=== PATIENT | female | born 1980 | race Native Hawaiian/Other Pacific Islander ===

== ENCOUNTER 2016-09-07 10:40 | Outpatient (CLI) | payer MEDICAID ==
[2016-09-07 14:02] LABS: BASOPHILS # (AUTO) 0.1 10^3/uL (0.0-0.1); BASOPHILS % (AUTO) 0.7 %; EOSINOPHILS # (AUTO) 0.3 10^3/uL (0.0-0.7); EOSINOPHILS % (AUTO) 3.4 %; HCT - HEMATOCRIT 41.2 % (37.0-47.0); HGB - HEMOGLOBIN 13.6 g/dL (12.0-16.0); LYMPHOCYTES # (AUTO) 2.1 10^3/uL (1.5-3.5); LYMPHOCYTES % (AUTO) 25.8 %; MEAN CORPUSCULAR HEMOGLOBIN 29.2 pg (27.0-31.0); MEAN CORPUSCULAR HGB CONC 33.1 g/dL (32.0-36.0); MEAN CORPUSCULAR VOLUME 88.4 fL (81.0-99.0); MEAN PLATELET VOLUME 8.6 fL (7.9-10.8); MONOCYTES # (AUTO) 0.5 10^3/uL (0.0-1.0); MONOCYTES % (AUTO) 5.7 %; NEUTROPHILS # (AUTO) 5.2 10^3/uL (1.5-6.6); NEUTROPHILS % (AUTO) 64.4 %; RED BLOOD COUNT 4.66 10^6/uL (4.20-5.40); RED CELL DISTRIBUTION WIDTH 14.4 % (12.0-15.0)
[2016-09-07 14:28] LABS: CHOL/HDL RATIO 4.4 (<4.4); CHOLESTEROL 251 mg/dL; HDL CHOLESTEROL 57 mg/dL; TRIGLYCERIDES 120 mg/dL; VLDL CHOLESTEROL 24 mg/dL
== END 2016-09-07 10:41 | disposition home or self-care (01) ==
LOC: LAB.N 10:40
PROVIDERS: ATTEND Physician Assistant
DX: Z72.0 Tobacco use (principal); I10 Essential (primary) hypertension
CPT/HCPCS: 36415; 80061; 84443; 85025

== ENCOUNTER 2017-10-18 11:15 | Outpatient (CLI) | payer MEDICAID ==
[2017-10-18 18:54] LABS: BILIRUBIN,URINE NEGATIVE (NEGATIVE); GLUCOSE, URINE (UA) NEGATIVE (NEGATIVE); KETONES,URINE (UA) NEGATIVE (NEGATIVE); LEUKOCYTE ESTERASE, URINE NEGATIVE (NEGATIVE); NITRITE,URINE NEGATIVE (NEGATIVE); OCCULT BLOOD,URINE NEGATIVE (NEGATIVE); PROTEIN,URINE NEGATIVE (NEGATIVE); UROBILINOGEN,URINE 0.2 (NORMAL) E.U./dL (NORMAL)
[2017-10-18 19:17] LABS: CLARITY,URINE CLEAR (CLEAR); RBC,URINE 0-5 /HPF (0-5); SQUAMOUS EPITHELIAL CELL,UR MANY Squamous (<= Few)
[2017-10-18 19:18] LABS: BACTERIA,URINE Few /HPF (None Seen)
== END 2017-10-18 11:16 | disposition home or self-care (01) ==
LOC: LAB.N 11:15
PROVIDERS: ATTEND Physician Assistant Medical
DX: N30.00 Acute cystitis without hematuria (principal)
CPT/HCPCS: 81001; 87086

== ENCOUNTER 2018-11-20 08:00 | Outpatient (CLI) | payer MEDICAID ==
[2018-11-20 18:56] LABS: BASOPHILS % (AUTO) 0.4 %; EOSINOPHILS # (AUTO) 0.3 10^3/uL (0.0-0.7); EOSINOPHILS % (AUTO) 3.3 %; HGB - HEMOGLOBIN 14.3 g/dL (12.0-16.0); LYMPHOCYTES # (AUTO) 2.3 10^3/uL (1.5-3.5); LYMPHOCYTES % (AUTO) 28.7 %; MEAN CORPUSCULAR HEMOGLOBIN 30.7 pg (27.0-31.0); MEAN CORPUSCULAR HGB CONC 33.6 g/dL (32.0-36.0); MEAN CORPUSCULAR VOLUME 91.4 fL (81.0-99.0); MEAN PLATELET VOLUME 10.3 fL (7.9-10.8); MONOCYTES # (AUTO) 0.4 10^3/uL (0.0-1.0); MONOCYTES % (AUTO) 5.2 %; NEUTROPHILS # (AUTO) 4.9 10^3/uL (1.5-6.6); PLT - PLATELET COUNT 370 10^3/uL (130-450); RED BLOOD COUNT 4.66 10^6/uL (4.20-5.40); RED CELL DISTRIBUTION WIDTH 13.2 % (12.0-15.0); WHITE BLOOD COUNT 7.9 x10^3/uL (4.8-10.8)
[2018-11-20 19:06] LABS: CALCIUM 10.1 mg/dL (8.5-10.3); CREATININE 0.7 mg/dL (0.4-1.0)
== END 2018-11-20 23:59 | disposition home or self-care (01) ==
LOC: LAB.N 08:00
PROVIDERS: ATTEND Physician Assistant Medical
DX: I10 Essential (primary) hypertension (principal)
CPT/HCPCS: 36415; 80048; 84443; 85025

== ENCOUNTER 2020-07-01 09:08 | Outpatient (CLI) | payer MEDICAID ==
[2020-07-01 12:12] LABS: ALBUMIN 4.2 g/dL (3.2-5.5); ALBUMIN/GLOBULIN RATIO 1.5 (1.0-2.2); ALKALINE PHOSPHATASE 59 IU/L (42-121); ALT ALANINE AMINOTRANSFERASE 28 IU/L (10-60); AST ASPARTATE AMINOTRANSFERASE 23 IU/L (10-42); BILIRUBIN,TOTAL 0.6 mg/dL (0.2-1.0); BUN - BLOOD UREA NITROGEN 17 mg/dL (6-20); CALCIUM 9.7 mg/dL (8.5-10.3); CARBON DIOXIDE - CO2 22 mmol/L (21-32); CHLORIDE 104 mmol/L (101-111); CHOL/HDL RATIO 4.6 (<4.4); CHOLESTEROL 260 mg/dL; CREATININE 0.8 mg/dL (0.4-1.0); GFR - MDRD 79 (>89); GLUCOSE 140 mg/dL (70-100); HDL CHOLESTEROL 56 mg/dL; LDL CHOLESTEROL,CALCULATED 170 mg/dL; SODIUM 136 mmol/L (135-145); TRIGLYCERIDES 172 mg/dL; VLDL CHOLESTEROL 34 mg/dL
[2020-07-01 12:19] LABS: THYROID STIMULATING HORMONE 1.27 uIU/mL (0.34-5.60)
[2020-07-01 12:22] LABS: ESTIMATED AVERAGE GLUCOSE 128 mg/dL (70-100); HEMOGLOBIN A1c% 6.1 % (4.27-6.07)
[2020-07-01 13:11] LABS: BASOPHILS % (AUTO) 0.4 %; EOSINOPHILS # (AUTO) 0.2 10^3/uL (0.0-0.7); EOSINOPHILS % (AUTO) 3.6 %; HCT - HEMATOCRIT 41.4 % (37.0-47.0); HGB - HEMOGLOBIN 13.6 g/dL (12.0-16.0); LYMPHOCYTES # (AUTO) 1.9 10^3/uL (1.5-3.5); LYMPHOCYTES % (AUTO) 28.2 %; MEAN CORPUSCULAR HEMOGLOBIN 29.8 pg (27.0-31.0); MEAN CORPUSCULAR HGB CONC 32.9 g/dL (32.0-36.0); MEAN CORPUSCULAR VOLUME 90.8 fL (81.0-99.0); MONOCYTES # (AUTO) 0.4 10^3/uL (0.0-1.0); MONOCYTES % (AUTO) 6.4 %; NEUTROPHILS # (AUTO) 4.1 10^3/uL (1.5-6.6); NEUTROPHILS % (AUTO) 61.3 %; PLT - PLATELET COUNT 283 10^3/uL (130-450); RED BLOOD COUNT 4.56 10^6/uL (4.20-5.40); RED CELL DISTRIBUTION WIDTH 12.9 % (12.0-15.0); WHITE BLOOD COUNT 6.7 x10^3/uL (4.8-10.8)
== END 2020-07-01 09:09 | disposition home or self-care (01) ==
LOC: LAB.N 09:08
PROVIDERS: ATTEND Family Medicine
DX: Z00.00 Encounter for general adult medical examination without abnormal findings (principal); E78.5 Hyperlipidemia, unspecified
CPT/HCPCS: 36415; 80053; 80061; 83036; 83721; 84443; 85025

== ENCOUNTER 2021-04-16 11:07 | Outpatient (CLI) | payer MEDICAID ==
--- NOTE | 2021-04-16 12:42 | Ultrasound Report ---
PROCEDURE: Pelvic w/Transvaginal, ultrasound INDICATIONS: MENORRHAGIA, THICKENED ENDOMETRIUM TECHNIQUE: Real-time scanning was performed of the pelvic organs, with image documentation. Additional endovagi nal scanning was necessary due to incomplete visualization of the adnexal and endometrial structures by transabdominal scanning. COMPARISON: 01/29/2016 FINDINGS: No pathologic free abdominal or pelvic fluid. Uterus: Uterus is normal in size at 1.2 x 3.9 x 4.7 cm. The endometrium measures 8 mm in combined t hickness. Myometrium is heterogenous, and there is a submucosal 1 cm centimeters fibroid in the mid anterior uterus. Focal scarring noted from prior . A focal endometrial thickening measures 7 .5 mm may reflect polyp. Ovaries: Right left ovaries measure 3.5 x 1.9 x 1.3 cm and 2.7 x 1.6 x 1.4 cm respectively. There is a right ovarian hemorrhagic cyst measuring 1.5 x 1.3 cm. IMPRESSION: Small 1 cm uterine fibroid Possible endometrial polyp could be confirmed with sonohysterogram Reviewed by: Kris Mclean MD on 04/16/2021 11:41 AM [place] Approved by: Kris Mclean MD on 04/16/2021 11:41 AM [facility] Station ID: [id number]
== END 2021-04-16 11:08 | disposition home or self-care (01) ==
LOC: DI 11:07
PROVIDERS: ATTEND Obstetrics & Gynecology
DX: N92.0 Excessive and frequent menstruation with regular cycle (principal); N85.00 Endometrial hyperplasia, unspecified; D25.0 Submucous leiomyoma of uterus; R93.89 Abnormal findings on diagnostic imaging of other specified body structures

== ENCOUNTER 2021-08-01 09:07 | Outpatient (CLI) | payer MEDICAID ==
[2021-08-01 09:31] LABS: BASOPHILS # (AUTO) 0.1 10^3/uL (0.0-0.1); BASOPHILS % (AUTO) 0.7 %; EOSINOPHILS # (AUTO) 0.3 10^3/uL (0.0-0.7); EOSINOPHILS % (AUTO) 3.8 %; HCT - HEMATOCRIT 41.1 % (37.0-47.0); HGB - HEMOGLOBIN 13.6 g/dL (12.0-16.0); LYMPHOCYTES # (AUTO) 1.8 10^3/uL (1.5-3.5); LYMPHOCYTES % (AUTO) 24.8 %; MEAN CORPUSCULAR HEMOGLOBIN 29.2 pg (27.0-31.0); MEAN CORPUSCULAR HGB CONC 33.1 g/dL (32.0-36.0); MEAN CORPUSCULAR VOLUME 88.4 fL (81.0-99.0); MEAN PLATELET VOLUME 9.3 fL (7.9-10.8); MONOCYTES # (AUTO) 0.5 10^3/uL (0.0-1.0); MONOCYTES % (AUTO) 6.8 %; NEUTROPHILS # (AUTO) 4.7 10^3/uL (1.5-6.6); NEUTROPHILS % (AUTO) 63.8 %; PLT - PLATELET COUNT 304 10^3/uL (130-450); RED BLOOD COUNT 4.65 10^6/uL (4.20-5.40); RED CELL DISTRIBUTION WIDTH 13.1 % (12.0-15.0); WHITE BLOOD COUNT 7.3 x10^3/uL (4.8-10.8)
[2021-08-01 09:52] LABS: ALBUMIN 4.2 g/dL (3.2-5.5); ALBUMIN/GLOBULIN RATIO 1.3 (1.0-2.2); ALKALINE PHOSPHATASE 56 IU/L (42-121); ALT ALANINE AMINOTRANSFERASE 24 IU/L (10-60); AST ASPARTATE AMINOTRANSFERASE 19 IU/L (10-42); BILIRUBIN,TOTAL 0.8 mg/dL (0.2-1.0); BUN - BLOOD UREA NITROGEN 14 mg/dL (6-20); CALCIUM 9.9 mg/dL (8.5-10.3); CARBON DIOXIDE - CO2 25 mmol/L (21-32); CHLORIDE 101 mmol/L (101-111); CHOL/HDL RATIO 4.4 (<4.4); CHOLESTEROL 282 mg/dL; CREATININE 0.9 mg/dL (0.4-1.0); GFR - MDRD 69 (>89); GLUCOSE 142 mg/dL (70-100); HDL CHOLESTEROL 64 mg/dL; LDL CHOLESTEROL,CALCULATED 190 mg/dL; POTASSIUM 4.1 mmol/L (3.5-5.0); SODIUM 138 mmol/L (135-145); TOTAL PROTEIN 7.4 g/dL (6.7-8.2); TRIGLYCERIDES 140 mg/dL; VLDL CHOLESTEROL 28 mg/dL
[2021-08-01 10:06] LABS: CREATININE,URINE 110.5 mg/dL; MICROALBUM/CREATININE RATIO,UR 150.2 ug/mg (<30.0); MICROALBUMIN,URINE 16.6 mg/dL (0-300.0)
[2021-08-01 12:04] LABS: ESTIMATED AVERAGE GLUCOSE 128 mg/dL (70-100); HEMOGLOBIN A1c% 6.1 % (4.27-6.07)
== END 2021-08-01 09:08 | disposition home or self-care (01) ==
LOC: LAB 09:07
PROVIDERS: ATTEND Obstetrics & Gynecology
DX: Z01.812 Encounter for preprocedural laboratory examination (principal); N92.0 Excessive and frequent menstruation with regular cycle; D25.9 Leiomyoma of uterus, unspecified; N84.0 Polyp of corpus uteri; E11.9 Type 2 diabetes mellitus without complications
CPT/HCPCS: 36415; 80053; 80061; 82043; 82570; 83036; 83721; 85025; 86850; 86900; 86901; 86920

== ENCOUNTER 2021-08-02 09:33 | Day surgery (SDC) | payer MEDICAID ==
[~2021-08-02 09:33] MED LIST: BUPIVACAINE 0.25% PF 10 ML VIAL ONE; LIDOCAINE 2%-EPI 1:100000 20 ML MDV ONE; METHYLENE BLUE 0.5% 50 MG/10 ML AMPULE ONE; VASOPRESSIN 20 UNIT/ML VIAL ONE
[2021-08-02] MEDS ORDERED: CEFAZOLIN SODIUM IN 0.9 % NACL 0 GM/0 ML BAG IV ONE (09:40)
[2021-08-02] MEDS ORDERED: ACETAMINOPHEN 500 MG TABLET PO ONE (09:40)
[2021-08-02] MEDS ORDERED: GABAPENTIN 400 MG CAPSULE ONE (09:41)
[2021-08-02] MEDS ORDERED: CELECOXIB 100 MG CAPSULE PO ONE (09:41)
[2021-08-02] MEDS ORDERED: PHENAZOPYRIDINE 100 MG TABLET PO ONE (09:42)
[2021-08-02] MEDS ORDERED: LACTATED RINGERS 1,000 ML IV ONE ×2 (10:08→16:16)
--- NOTE | 2021-08-02 10:18 | ANESTHESIA ---
Pre-Anesthesia VS, & Labs - Diagnosis menorrhagia, uterine fibroid, uterine polyp - Procedure LAV Vital Signs: Temp Pulse Resp BP Pulse Ox 36.6 C 78 19 150/89 H 98 08/02/21 09:55 08/02/21 09:55 08/02/21 09:55 08/02/21 09:55 08/02/21 09:55 Height: 5 ft 8 in Weight (kg): 92.4 kg Body Mass Index: 30.9 BMI Classification: Obese - NPO >8 hours - Is Patient ?: No - Lab Results Current Lab Results: Laboratory Tests 08/02/21 10:02: POC Whole Bld Glucose 126 H Lab results reviewed: Yes Home Medications and Allergies Home Medications: Ambulatory Orders Losartan Potassium [Cozaar] 100 mg PO DAILY 07/28/21 buPROPion [Wellbutrin Xl] 150 mg PO DAILY 07/28/21 hydroCHLOROthiazide [Hydrodiuril] 25 mg PO DAILY 07/28/21 metFORMIN [Glucophage] 500 mg PO BIDWM 07/28/21 Losartan Potassium [Cozaar] 100 mg PO DAILY 07/28/21 buPROPion [Wellbutrin Xl] 150 mg PO DAILY 07/28/21 hydroCHLOROthiazide [Hydrodiuril] 25 mg PO DAILY 07/28/21 metFORMIN [Glucophage] 500 mg PO BIDWM 07/28/21 Allergies/Adverse Reactions: Allergies Allergy/AdvReac Type Severity Reaction Status Date / Time naproxen Allergy Respiratory Verified 11/04/12 16:56 Penicillins Allergy Respiratory Verified 10/29/12 16:20 Anes History & Medical History - Anesthetic History Anesthesia Complications: reports: No previous complications Family history of Anesthesia Complications: Denies Family history of Malignant Hyperthermia: Denies - Medical History Cardiovascular: reports: Hypertension, Murmur Pulmonary: reports: None Gastrointestinal: reports: None Urinary: reports: None Musculoskeletal: reports: None Endocrine/Autoimmune: reports: Type 2 diabetes Skin: reports: None Smoking Status: Former smoker - Surgical History Gynecologic: reports: section, Tubal ligation Orthopedic: reports: Other Exam General: Alert, Oriented x3, Cooperative, No acute distress Dental: WNL Mouth Openin Fingerbreadth Neck Mobility: Normal Mallampati classification: II Plan Anesthesia Type: General Consent for Procedure(s) Verified and Reviewed: Yes Code Status: Attempt Resuscitation ASA classification: 2-Mild systemic disease Is this case an emergency?: No
[2021-08-02] MEDS ORDERED: ONDANSETRON 4 MG/2 ML VIAL ONE (10:33)
[2021-08-02] MEDS ORDERED: ROCURONIUM 50 MG/5 ML VIAL ONE ×3 (10:33→13:37)
[2021-08-02] MEDS ORDERED: DEXAMETHASONE 4 MG/ML VIAL ONE (10:33)
[2021-08-02] MEDS ORDERED: KETOROLAC 30 MG/ML VIAL ONE (10:33)
[2021-08-02] MEDS ORDERED: MIDAZOLAM 2 MG/2 ML VIAL ONE (10:33)
[2021-08-02] MEDS ORDERED: LIDOCAINE-MPF 2% 5 ML VIAL ONE (10:33)
[2021-08-02] MEDS ORDERED: PROPOFOL 200 MG/20 ML VIAL IVP ONE (10:33)
[2021-08-02] MEDS ORDERED: fentaNYL 100 MCG/2 ML VIAL ONE ×2 (10:33→15:22)
[2021-08-02] MEDS ORDERED: metroNIDAZOLE 500 MG/100 ML 500 MG/100 ML BAG ONE (10:47)
[2021-08-02] MEDS ORDERED: CLINDAMYCIN 900 MG/50 ML 50 ML IV ONE ×2 (10:47→18:00)
[2021-08-02] MEDS ORDERED: LIDOCAINE 1%-EPI 1:100000 30 ML MDV SUBQ ONE (11:31)
[2021-08-02] MEDS ORDERED: METHYLENE BLUE 0.5% 50 MG/10 ML AMPULE IR ONE (11:31)
[2021-08-02] MEDS ORDERED: BUPIVACAINE 0.25% PF 10 ML VIAL SUBQ ONE ×2 (11:33)
[2021-08-02] MEDS ORDERED: ATROPINE ABBOJECT 1 MG/10 ML SYRINGE IVP PRN (12:47)
[2021-08-02] MEDS ORDERED: ePHEDrine 50 MG/ML VIAL IVP PRN (12:47)
[2021-08-02] MEDS ORDERED: fentaNYL 100 MCG/2 ML VIAL IVP PRN (12:47)
[2021-08-02] MEDS ORDERED: HYDROmorphone 0.5 MG/0.5 ML SYRINGE IVP PRN (12:47)
[2021-08-02] MEDS ORDERED: MORPHINE 2 MG/ML CARPUJECT IVP PRN (12:47)
[2021-08-02] MEDS ORDERED: NALOXONE 0.4 MG/ML VIAL IVP PRN (12:47)
[2021-08-02] MEDS ORDERED: ONDANSETRON 4 MG/2 ML VIAL IVP PRN (12:47)
[2021-08-02] MEDS ORDERED: METOCLOPRAMIDE 10 MG/2 ML VIAL IVP PRN (12:47)
[2021-08-02] MEDS ORDERED: LACTATED RINGERS 1,000 ML IV SCH (13:00)
[2021-08-02] MEDS ORDERED: HYDROmorphone 1 MG/ML CARPUJECT ONE (13:46)
[2021-08-02] MEDS ORDERED: SEVOFLURANE 250 ML LIQUID INH ONE (14:25)
[2021-08-02] MEDS ORDERED: SUGAMMADEX 200 MG/2 ML VIAL IVP ONE (15:23)
[2021-08-02] MEDS ORDERED: LIDOCAINE JELLY 2% 6 ML JEL.PF.APP ONE (15:25)
[2021-08-02] MEDS ORDERED: TRANEXAMIC ACID 1,000 MG/10 ML VIAL ONE (15:33)
[2021-08-02] MEDS ORDERED: SCOPOLAMINE PATCH TOP PRN (16:27)
[2021-08-02] MEDS ORDERED: SIMETHICONE CHEW 80 MG TABLET PO PRN (16:27)
[2021-08-02] MEDS ORDERED: HYDROmorphone 1 MG/ML CARPUJECT IVP PRN (16:27)
[2021-08-02] MEDS ORDERED: oxyCODONE 5 MG TABLET PO PRN (16:27)
[2021-08-02] MEDS ORDERED: ONDANSETRON ODT 4 MG TABLET TL PRN (16:27)
--- NOTE | 2021-08-02 16:31 | OPERATIVE REPORT ---
Operative Report - General Procedure Date: 08/02/21 Planned Procedure: Laparoscopic assisted vaginal hysterectomy and cystoscopy Pre-Op Diagnosis: DUB, Hx of Cervical dysplasia, pelvic pain Procedure Performed: Extensive lysis of adhesions Laparoscopic assisted vaginal hysterectomy and cystoscopy Post Op Diagnosis: Same and extensive adhesive disease - Procedure Note Primary Surgeon: Jeanna Cage MD Secondary Surgeon: Willy Monroy MD Anesthesia Provider: Luis Manuel Gonzalez CRNA and Merle Soliz CRNA Anesthesia Technique: General ET tube Pathology: uterus without fallopian tubes, Fallopian tubes were surgically absent IV Fluids (mL): 2,100 Estimated Blood Loss (mL): 100 Urine Output (mL): 100 Indications: Patient is a 40 yo here for preop assessment for laparoscopic assisted hysterectomy with possible bilateral salpingectomy and cystoscopy for on going menorrhaghia with failure of medical management. Patient was initially seen in [facility] on 03/07/21. At that time she reported that she has heavy menses such that she cannot leave her house due to the high volume of flow. She changes a pad every hour due to saturation. She soaks her clothing and has to sleep on a geripad to protect her bedding. She is sexually active and denies dyspareunia. BTL for contraception. Has had an and CSx2. She had a pelvic us in 01/2016 that showed a thickened EMS of 15.1 and a 1.1 cm fundal fluid collection. Patient does not recall fu of the us. She was referred for an endometrial ablation but was not familiar with the procedure and was not aware of her options. Opted for hysterectomy. Last oap 01/31/21, NILM and HPV negative. Hx of ASCUS in 2009. Endometrial biopsy on 06/03/21 was wnl. Has been using norethindrone with some improvement but not fully controlled. She has had 2 c-sections and a LEEP for RORY-III. No change in health hx since time of prior exam other than as noted in HPI. Findings: Extensive adhesive disease with more than 60% of the anterior abdominal wall and left pelvic sidewall with thick adhesive disease requiring extensive lysis and use of additional port sites Complications: None - Other Other Information/Narrative: Risks benefits and alternatives of the procedure were reviewed. Consent was again confirmed. Patient was brought to the operating room and underwent general anesthesia. She was placed in dorsal lithotomy position with legs resting in yellowfin stirrups. SCDs were in place and activated. Clindamycin 900 g IV and metronidazole 500 mg IV was administered prior to start of procedure. She was prepped and draped in the usual sterile fashion. Surgical timeout was performed. Bimanual exam was performed. Sterile speculum was placed and Vcare uterine manipulator was placed, confirming that the inner cup was flush with the vaginal fornices. The base of the umbilicus was anesthetized with intradermal injection of 0.25% Marcaine. A 5 mm skin incision was made with a scalpel. A 5 mm blunt trocar was inserted under direct visualization using Visiport. Once the port was confirmed to be placed intraperitoneally, the abdomen was insufflated to 15 mmHg with CO2 gas Exploration of the abdomen and pelvis was confirmed that no injury was sustained with placement of the trocar. A 5 mm port was placed in the right lower quadrants, taking care to avoid the epigastric arteries, while under direct visualization via laparoscopic guidance. The abdomen was explored with the laparoscope, with findings as noted. More than 60% of the anterior abdominal wall was noted to have extensive adhesive disease, fixing the omentum to the anterior abdominal wall and the left pelvic sidewall. This precluded full visualization of the uterus and ovaries. The left lateral port was placed with the invisiport under direct visualization to avoid damage to any potentially adherent bowel. The port was not visible form outside the curtain of adhesions and was completely encapsulated such that the port was not suitable for progressing the surgery. An OG tube was placed to decompress the stomach and an additional 5 mm port was placed in the upper left quadrant using the Visiport. The case proceeded with careful dissection of the anterior abdominal adhesions using a combination of blunt and sharp dissection, as well as minimal use of cautery. The effort took and extensive period of time. Good hemostasis was noted and care was taken to ensure that not bowel injury occurred. Ureters were identified bilaterally. The Fallopian tubes were surgically absent. The uterine ovarian ligament was transected using the LigaSure bipolar device. A bladder flap was mobilized by dividing the round ligaments using the bipolar cutting forceps, and the peritoneum on the vesicouterine fold was incised to mobilize the bladder. Once the colpotomy ring was skeletonized and in position, the uterine arteries were sealed using the bipolar forceps at the level of the colpotomy ring. This was repeated on the left aspect of the uterus in the same manner. Again, the right uterine-ovarian ligament showed post-inflammatory changes with thickned peritoneum and tissue adherent to he lateral uterus, requiring a level of care to the dissection that was greater than average. Colpotomy was performed using the harmonic scalpel, resulting in separation of the uterus and attached tubes. . The uterus was delivered through the vagina. Attention was then turned to the vaginal cuff closure. The abdomen was desufflated and the abdominal surgical field was covered with sterile towels. A weighted speculum was placed in the vagina. Long Allis clamps were used to grasp the edges of the peritoneum. The peritoneum was closed with a running Pursestring suture using 2-0 Vicryl. The uterosacral ligaments were then grasped with long Allis clamps bilaterally. 0 Vicryl suture was used to transfix the uterosacral ligaments and then fix them to the anterior and posterior aspects of the vaginal cuff bilaterally, thus fixing the uterosacral ligaments of the vaginal fornices. The vaginal cuff closure was then closed in a transverse fashion using interrupted [id number] suture using 0 Vicryl. Good hemostasis was noted. We then turned our attention to the cystoscopic portion of the procedure. Mejia catheter was removed and the cystoscope was inserted. Bladder was instilled with NS. A survey of the bladder showed no trauma or presence of suture in the bladder topography. Patient had been pretreated with pyridium. Vigorous ureteral jets were observed bilaterally. Cystoscope was removed after bladder was drained. Mejia catheter was replaced. We again returned to the abdominal surgical field after removing outer gloves. The abdomen was again insufflated. The vaginal cuff was visualized internally and was noted to be hemostatic at the cuff closure, but surrounding raw tissues were oozing across a broad surface. Surgicel was applied with insufficient response. Floseal was applied with suboptimal control of bleeding. Anesthesia administered TXA. Judicious use of the Ligasure to cotrol bleeding was used. Surgicel was again applied. Bleeding stopped spontaneously. Good hemostasis was noted. The abdomen was partially desufflated. Pedicles were observed under decreased pressure and good hemostasis was again confirmed. All instruments were removed from the abdomen. Skin was closed with interrupted subcuticular stitches using 4-0 Monocryl. Dermabond was applied over the suture sites. The final sponge needle and instrument counts were correct at completion of the procedure patient was awakened taken to the postanesthesia care unit in stable condition. Dr. Monroy assisted with suturing, retraction, and completion of their side of the hysterectomy. 22 Modifier: Extent of adhesive disease rendered this procedure more difficult than average and required additional time to the operative time and additional use of equipment.
[2021-08-02] MEDS: ACETAMINOPHEN 500 MG TABLET PO SCH (17:32)
[2021-08-02] MEDS: LACTATED RINGERS 1,000 ML IV SCH (17:33)
[2021-08-02] MEDS: KETOROLAC 30 MG/ML VIAL IVP SCH ×2 (17:33→23:34)
[2021-08-02] MEDS ORDERED: CLINDAMYCIN 900 MG/50 ML 50 ML IV SCH (18:00)
[2021-08-02] MEDS ORDERED: metroNIDAZOLE 500 MG/100 ML 500 MG/100 ML BAG IV ONE (18:00)
[2021-08-02] MEDS ORDERED: INSULIN REGULAR HUMAN 300 UNIT/3 ML VIAL SUBQ SCH (18:00)
--- NOTE | 2021-08-02 21:04 | ANESTHESIA POST OP EVALUATION ---
Anesthesia Post Eval - Post Anesthesia Eval Vitals: Last Vital Signs Temp 36.5 C 08/02/21 18:57 Pulse 93 08/02/21 18:57 Resp 16 08/02/21 18:57 BP 135/80 H 08/02/21 18:57 Pulse Ox 98 08/02/21 18:57 CV Function Including HR & BP: Stable Pain Control: Satisfactory Nausea & Vomiting: Negative Mental Status: Baseline Respiratory Status: Airway Patent Hydration Status: Satisfactory Anesthesia Complications: None
[2021-08-02] MEDS: DOCUSATE SODIUM 100 MG CAPSULE PO SCH (21:17)
[2021-08-02] MEDS: INSULIN ASPART 300 UNIT/3 ML PEN SUBQ SCH (21:18)
[2021-08-03] MEDS: ACETAMINOPHEN 500 MG TABLET PO SCH ×2 (01:38→08:39)
[2021-08-03] MEDS: LACTATED RINGERS 1,000 ML IV SCH (01:39)
[2021-08-03] MEDS: KETOROLAC 30 MG/ML VIAL IVP SCH ×2 (04:47→11:31)
[2021-08-03 05:39] LABS: BASOPHILS % (AUTO) 0.1 %; EOSINOPHILS # (AUTO) 0.1 10^3/uL (0.0-0.7); EOSINOPHILS % (AUTO) 1.2 %; HCT - HEMATOCRIT 33.2 % (37.0-47.0); HGB - HEMOGLOBIN 10.8 g/dL (12.0-16.0); LYMPHOCYTES # (AUTO) 1.9 10^3/uL (1.5-3.5); LYMPHOCYTES % (AUTO) 21.9 %; MEAN CORPUSCULAR HEMOGLOBIN 28.6 pg (27.0-31.0); MEAN CORPUSCULAR HGB CONC 32.5 g/dL (32.0-36.0); MEAN CORPUSCULAR VOLUME 87.8 fL (81.0-99.0); MEAN PLATELET VOLUME 9.3 fL (7.9-10.8); MONOCYTES # (AUTO) 0.6 10^3/uL (0.0-1.0); NEUTROPHILS % (AUTO) 69.5 %; PLT - PLATELET COUNT 273 10^3/uL (130-450); RED BLOOD COUNT 3.78 10^6/uL (4.20-5.40); RED CELL DISTRIBUTION WIDTH 12.9 % (12.0-15.0); WHITE BLOOD COUNT 8.6 x10^3/uL (4.8-10.8)
[2021-08-03 05:52] LABS: ALBUMIN 3.2 g/dL (3.2-5.5); ALBUMIN/GLOBULIN RATIO 1.2 (1.0-2.2); BILIRUBIN,TOTAL 0.6 mg/dL (0.2-1.0); CALCIUM 8.3 mg/dL (8.5-10.3); CREATININE 0.9 mg/dL (0.4-1.0); POTASSIUM 3.6 mmol/L (3.5-5.0); TOTAL PROTEIN 5.8 g/dL (6.7-8.2)
[2021-08-03] MEDS: DOCUSATE SODIUM 100 MG CAPSULE PO SCH (08:38)
[2021-08-03] MEDS: INSULIN ASPART 300 UNIT/3 ML PEN SUBQ SCH (08:41)
[2021-08-03] MEDS ORDERED: buPROPion XL 150 MG TABLET PO SCH (09:00)
[2021-08-03] MEDS ORDERED: ENOXAPARIN 40 MG/0.4 ML SYRINGE SUBQ SCH (09:00)
[2021-08-03] MEDS ORDERED: LOSARTAN 50 MG TABLET PO SCH (09:00)
[2021-08-03 12:13] VITALS: BP 148/90
== END 2021-08-03 11:50 | disposition home or self-care (01) ==
LOC: SDS 09:33 → MS2 17:16 → SDS 08-03 11:50
PROVIDERS: ATTEND Obstetrics & Gynecology
PROC: 0DNU4ZZ Release Omentum, Percutaneous Endoscopic Approach (ICD-10-PCS; 2021-08-02)
PROC: 0UT9FZZ Resection of Uterus, Via Natural or Artificial Opening With Percutaneous Endoscopic Assistance (ICD-10-PCS; principal; 2021-08-02 11:00)
DX: N93.8 Other specified abnormal uterine and vaginal bleeding (principal); D25.9 Leiomyoma of uterus, unspecified; N84.0 Polyp of corpus uteri; N92.0 Excessive and frequent menstruation with regular cycle; N73.6 Female pelvic peritoneal adhesions (postinfective); E66.9 Obesity, unspecified; Z68.30 Body mass index [BMI] 30.0-30.9, adult; E11.9 Type 2 diabetes mellitus without complications; Z79.84 Long term (current) use of oral hypoglycemic drugs; Z87.891 Personal history of nicotine dependence
CPT/HCPCS: 36415; 49329; 58550; 80053; 85025; A9270; J1170; J1650; J3490; J7120; 86900; 86901

== ENCOUNTER 2021-10-07 08:00 | Outpatient (CLI) | payer MEDICAID ==
[2021-10-07 17:41] LABS: BASOPHILS % (AUTO) 0.4 %; EOSINOPHILS # (AUTO) 0.3 10^3/uL (0.0-0.7); EOSINOPHILS % (AUTO) 3.5 %; HGB - HEMOGLOBIN 13.2 g/dL (12.0-16.0); LYMPHOCYTES # (AUTO) 1.7 10^3/uL (1.5-3.5); LYMPHOCYTES % (AUTO) 21.7 %; MEAN CORPUSCULAR HEMOGLOBIN 28.7 pg (27.0-31.0); MEAN PLATELET VOLUME 9.6 fL (7.9-10.8); MONOCYTES # (AUTO) 0.6 10^3/uL (0.0-1.0); MONOCYTES % (AUTO) 7.4 %; NEUTROPHILS # (AUTO) 5.4 10^3/uL (1.5-6.6); NEUTROPHILS % (AUTO) 66.8 %; PLT - PLATELET COUNT 326 10^3/uL (130-450); RED CELL DISTRIBUTION WIDTH 13.3 % (12.0-15.0)
[2021-10-07 17:52] LABS: ALBUMIN 4.2 g/dL (3.2-5.5); ALBUMIN/GLOBULIN RATIO 1.3 (1.0-2.2); BILIRUBIN,TOTAL 0.6 mg/dL (0.2-1.0); CALCIUM 9.5 mg/dL (8.5-10.3); CREATININE 0.8 mg/dL (0.4-1.0); POTASSIUM 3.6 mmol/L (3.5-5.0); TOTAL PROTEIN 7.5 g/dL (6.7-8.2)
== END 2021-10-07 23:59 | disposition home or self-care (01) ==
LOC: LAB.N 08:00
PROVIDERS: ATTEND Family Medicine
DX: R10.9 Unspecified abdominal pain (principal)
CPT/HCPCS: 36415; 80053; 85025

== ENCOUNTER 2021-10-10 10:12 | Outpatient (CLI) | payer MEDICAID | END 2021-10-10 10:13 | disposition home or self-care (01) | LOC: LAB.N 10:12 | PROVIDERS: ATTEND Family Medicine | DX: R19.7 Diarrhea, unspecified (principal) | CPT/HCPCS: 87045; 87046; 87329; 87427; 87493 ==

== ENCOUNTER 2021-10-13 14:59 | Emergency (ER) | payer MEDICAID ==
[2021-10-13 15:24] LABS: BASOPHILS % (AUTO) 0.5 %; EOSINOPHILS # (AUTO) 0.2 10^3/uL (0.0-0.7); HCT - HEMATOCRIT 39.1 % (37.0-47.0); HGB - HEMOGLOBIN 13.2 g/dL (12.0-16.0); LYMPHOCYTES # (AUTO) 2.5 10^3/uL (1.5-3.5); LYMPHOCYTES % (AUTO) 31.6 %; MEAN CORPUSCULAR HEMOGLOBIN 28.5 pg (27.0-31.0); MEAN CORPUSCULAR HGB CONC 33.8 g/dL (32.0-36.0); MEAN CORPUSCULAR VOLUME 84.4 fL (81.0-99.0); MEAN PLATELET VOLUME 8.9 fL (7.9-10.8); MONOCYTES # (AUTO) 0.6 10^3/uL (0.0-1.0); MONOCYTES % (AUTO) 7.9 %; NEUTROPHILS # (AUTO) 4.4 10^3/uL (1.5-6.6); NEUTROPHILS % (AUTO) 56.5 %; PLT - PLATELET COUNT 348 10^3/uL (130-450); RED BLOOD COUNT 4.63 10^6/uL (4.20-5.40); RED CELL DISTRIBUTION WIDTH 13.1 % (12.0-15.0); WHITE BLOOD COUNT 7.8 x10^3/uL (4.8-10.8)
[2021-10-13 15:37] LABS: ALBUMIN 4.4 g/dL (3.2-5.5); ALBUMIN/GLOBULIN RATIO 1.3 (1.0-2.2); BILIRUBIN,TOTAL 0.7 mg/dL (0.2-1.0); CALCIUM 9.9 mg/dL (8.5-10.3); CREATININE 1.4 mg/dL (0.4-1.0); POTASSIUM 2.8 mmol/L (3.5-5.0); TOTAL PROTEIN 7.7 g/dL (6.7-8.2)
[2021-10-13] MEDS ORDERED: SODIUM CHLORIDE 0.9% 1,000 ML IV STA (16:36)
--- NOTE | 2021-10-13 16:49 | ED Physician Documentation ---
History of Present Illness - Stated complaint Stated Complaint: BLOOD IN STOOL,ABD PX,NAUSEA - Chief complaint Chief Complaint: Abd Pain - Additonal information Additional information: 40-year-old female presents emergency department for evaluation of generalized lower abdominal discomfort as well as rectal bleeding and bloody stool. This has been ongoing now for about 3 weeks. She does report a history of hemorrhoids and she has significant pain with defecation. no fevers. no vomiting. She went to a local walk-in clinic recently and was told that her labs were normal. Past surgical history is most significant for recent hysterectomy in July 2021. Patient is frustrated, her primary care provider left office and she has been unable to establish with a new one. She does not have a PCP appointment until December. Review of Systems Constitutional: denies: Fever Nose: reports: Reviewed and negative Throat: reports: Reviewed and negative Cardiac: reports: Reviewed and negative Respiratory: reports: Reviewed and negative GI: reports: Abdominal Pain, Bloody / black stool : reports: Reviewed and negative Skin: reports: Reviewed and negative Musculoskeletal: reports: Reviewed and negative PD PAST MEDICAL HISTORY - Past Medical History Cardiovascular: Hypertension, Murmur Respiratory: None Endocrine/Autoimmune: Type 2 diabetes GI: None : None HEENT: Chronic vision loss Psych: Depression Musculoskeletal: None Derm: None - Past Surgical History Ortho: Other /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: section, Tubal ligation - Present Medications Home Medications: Ambulatory Orders Medication Instructions Recorded Confirmed Losartan Potassium [Cozaar] 100 mg PO DAILY 07/28/21 08/02/21 buPROPion [Wellbutrin Xl] 150 mg PO DAILY 07/28/21 08/02/21 hydroCHLOROthiazide [Hydrodiuril] 25 mg PO DAILY 07/28/21 08/02/21 metFORMIN [Glucophage] 500 mg PO BIDWM 07/28/21 08/02/21 Acetaminophen [Acetaminophen Extra 1,000 mg PO Q8H PRN #60 tablet 08/02/21 Strength] Docusate Sodium 100Mg Capsule 100 - 200 mg PO BID PRN #60 cap 08/02/21 [Colace 100Mg Capsule] Ibuprofen [Motrin] 600 mg PO Q6H PRN #60 tab 08/02/21 oxyCODONE [Roxicodone] 2.5 - 5 mg PO Q4H PRN #24 tablet 08/02/21 Gabapentin [Neurontin] 300 mg PO TID PRN #60 cap 08/03/21 - Allergies Allergies/Adverse Reactions: Allergies Allergy/AdvReac Type Severity Reaction Status Date / Time naproxen Allergy Respiratory Verified 10/13/21 15:13 Penicillins Allergy Respiratory Verified 10/13/21 15:13 - Social History Smoking Status: Former smoker PD ED PE NORMAL - General General: Alert and oriented X 3, No acute distress, Well developed/nourished - HEENT HEENT: Atraumatic, Moist mucous membranes - Neck Neck: Supple, no meningeal sign, No adenopathy - Cardiac Cardiac: RRR, No murmur, No gallop - Respiratory Respiratory: No respiratory distress, Clear bilaterally - Abdomen Abdomen: Normal bowel sounds, Soft, Non tender - Rectal Rectal: Other ( Chaperoned rectal exam revealed [place] hematochezia. Tender rectal exam) - Derm Derm: Normal color, Warm and dry, No rash - Extremities Extremities: No deformity - Neuro Neuro: Alert and oriented X 3, arnp 2-12 intact Eye Opening: Spontaneous Motor: Obeys Commands Verbal: Oriented GCS Score: 15 Results - Vitals Vitals: Vital Signs - 24 hr 10/13/21 10/13/21 10/13/21 15:08 15:13 17:13 Temperature 36.8 C 36.8 C 36.8 C Heart Rate 97 97 97 Respiratory 14 14 14 Rate Blood Pressure 151/91 H 151/91 H 151/91 H O2 Saturation 97 97 97 10/13/21 19:16 Temperature Heart Rate 81 Respiratory 20 Rate Blood Pressure 137/80 H O2 Saturation 100 Oxygen O2 Source Room air - Labs Labs: Laboratory Tests 10/13/21 10/13/21 10/13/21 15:19 15:19 17:19 WBC 7.8 RBC 4.63 Hgb 13.2 Hct 39.1 MCV 84.4 MCH 28.5 MCHC 33.8 RDW 13.1 Plt Count 348 MPV 8.9 Neut # (Auto) 4.4 Lymph # (Auto) 2.5 Glascock # (Auto) 0.6 Eos # (Auto) 0.2 Baso # (Auto) 0.0 Absolute Nucleated RBC 0.00 Nucleated RBC % 0.0 Sodium 133 L Potassium 2.8 L Chloride 97 L Carbon Dioxide 24 Anion Gap 12.0 BUN 26 H Creatinine 1.4 H Estimated GFR (MDRD) 41 L Glucose 146 H Calcium 9.9 Total Bilirubin 0.7 AST 24 ALT 36 Alkaline Phosphatase 84 Total Protein 7.7 Albumin 4.4 Globulin 3.3 Albumin/Globulin Ratio 1.3 Lipase 29 Urine Color YELLOW Urine Clarity CLEAR Urine pH 5.5 Ur Specific [place] 1.020 Urine Protein TRACE Urine Glucose (UA) NEGATIVE Urine Ketones NEGATIVE Urine Occult Blood NEGATIVE Urine Nitrite NEGATIVE Urine Bilirubin NEGATIVE Urine Urobilinogen 0.2 (NORMAL) Ur Leukocyte Esterase NEGATIVE Ur Microscopic Review NOT INDICATED Urine Culture Comments NOT INDICATED - Rads (name of study) CT of the abdomen Radiology: Final report received (No acute abdominal or pelvic abnormality. Hepatic steatosis. Diverticulosis without evidence of-itis) PD MEDICAL DECISION MAKING - ED course Complexity details: considered differential, d/w patient ED course: 40-year-old female presents emergency department for evaluation of hematochezia and painful bowel movements that has been ongoing now for a number of weeks. She thinks that she has bleeding hemorrhoids. She is also been having some generalized abdominal discomfort. She did obtain Screening labs today that showed no significant anemia. Her screening labs showed some hypokalemia with a potassium of 2.8. This was repleted with 20 of potassium here orally in the emergency department. I did do a digital rectal exam and there was some [place] blood on the gloved finger. It was quite tender exam. However patient presents the provider with photos on her phone that show a fair amount of hematochezia. I think that this is inconsistent with simple hemorrhoid bleeding. Therefore CT of the abdomen was completed. No acute findings were seen. I discussed with the patient that given lack of significant abdominal tenderness, anemia vital sign abnormality she was safe for discharge home. She will need referral for a screening colonoscopy as she may have polyps or other etiology such as mass that is not yet identified on the CAT scan. I am also encouraging her to use Preparation H suppositories for the rectal pain and her concern of hemorrhoids. Otherwise emergent return precautions discussed Departure - Departure Disposition: 01 Home, Self Care Clinical Impression: Rectal bleeding, Hypokalemia Condition: Stable Record reviewed to determine appropriate education?: Yes Comments: Cat is seen today in the emergency department because you have been having some rectal bleeding. As we discussed at the bedside your screening blood count is normal. It is unchanged from your last visit. Your potassium level was a little low today so we did give you some extra potassium in the emergency department. I did do a CT of your abdomen and we do not find any obvious source for the rectal bleeding on CAT scan. You are concerned that you could have hemorrhoids. I would recommend that you use Preparation H suppositories after each bowel movement. The steroid and this can help reduce pain and inflammation in your rectal area. However the amount of bleeding that you had which was seen on the photos on your phone I think is not consistent with hemorrhoids. Your primary care provider should make an emergent referral for you for a screening colonoscopy. Return to the emergency department for any syncopal episodes, uncontrolled racing heart, fevers uncontrolled abdominal pain or vomiting.
[2021-10-13] MEDS ORDERED: POTASSIUM CHLORIDE 20 MEQ TABLET PO STA (17:23)
[2021-10-13 17:39] LABS: BILIRUBIN,URINE NEGATIVE (NEGATIVE); GLUCOSE, URINE (UA) NEGATIVE (NEGATIVE); KETONES,URINE (UA) NEGATIVE (NEGATIVE); LEUKOCYTE ESTERASE, URINE NEGATIVE (NEGATIVE); NITRITE,URINE NEGATIVE (NEGATIVE); OCCULT BLOOD,URINE NEGATIVE (NEGATIVE); PH,URINE 5.5 PH (5.0-7.5); PROTEIN,URINE TRACE mg/dL (NEGATIVE); UROBILINOGEN,URINE 0.2 (NORMAL) E.U./dL (NORMAL)
[2021-10-13 17:43] LABS: CLARITY,URINE CLEAR (CLEAR)
--- NOTE | 2021-10-13 18:47 | CT Report ---
PROCEDURE: Abdomen/Pelvis W INDICATIONS: Rectal bleeding, hematochezia TECHNIQUE: After the administration of contrast, 5 mm thick sections acquired from the diaphragms to the sym physis. 5 mm thick coronal and sagittal reformats were acquired. For radiation dose reduction, the following was used: automated exposure control, adjustment of mA and/or kV according to patient size . COMPARISON: None. FINDINGS: Image quality: Excellent. ABDOMEN: Lung bases: Lung bases are clear. Heart size is normal. Solid organs: Liver: The liver has no mass or intrahepatic biliary ductal dilatation. The liver has low density co nsistent with hepatic steatosis. Biliary: The gallbladder has no gallstones, pericholecystic fluid, gallbladder wall thickening, or frank rrounding inflammatory change. [] Pancreas: The pancreas has no mass or ductal dilatation. No surrounding inflammation. Spleen: Normal size. No mass. Adrenal glands: No hypertrophy or nodules. Kidneys: No obstructive calculus or hydronephrosis. No solid mass. No cystic mass. Bowel: The distal esophagus and stomach are normal. The small bowel has a normal caliber and appeara nce. The terminal ileum is normal. The large bowel has diverticulosis without evidence of diverticu litis. Free air/free fluid: No free air or free fluid. Abdominal wall: No abdominal wall mass. Fat-containing umbilical hernia. Retroperitoneum: No retroperitoneal or mesenteric adenopathy by size criteria. Aorta and inferior ve na cava are normal in size. Lymph nodes: No adenopathy. Bones: No suspicious bony lesions. No vertebral body compression fractures. Degenerative changes of L5-S1. PELVIS: Genitourinary: Bladder wall thickness is normal. Miscellaneous: No inguinal hernias or adenopathy. Bones: No suspicious bony lesions. No vertebral body compression fractures. IMPRESSION: 1. No acute abdominal or pelvic abnormality. 2. Hepatic steatosis. 3. Diverticulosis with no evidence of diverticulitis. Reviewed by: Luca Shen on 10/13/2021 6:45 PM PDT Approved by: Luca Shen on 10/13/2021 6:45 PM PDT Station ID: [id number]
[2021-10-13 19:17] VITALS: BP 137/80
== END 2021-10-13 20:00 | disposition home or self-care (01) ==
LOC: ED 14:59
DX: K92.1 Melena (principal); E87.6 Hypokalemia; I10 Essential (primary) hypertension; E11.9 Type 2 diabetes mellitus without complications; Z79.84 Long term (current) use of oral hypoglycemic drugs
CPT/HCPCS: 36415; 74177; 80053; 81003; 83690; 85025; 99284; A9270; Q9967; 81001; 87086

== ENCOUNTER 2021-10-14 09:03 | Outpatient (CLI) | payer MEDICAID ==
--- NOTE | 2021-10-17 10:21 | Mammography Report ---
BILATERAL DIGITAL SCREENING MAMMOGRAM 3D/2D: 10/14/2021 CLINICAL: Routine screening. Baseline exam. No prior exams were available for comparison. There are scattered fibroglandular elements in both br easts. No significant masses, calcifications, or other findings are seen in either breast. IMPRESSION: NEGATIVE There is no mammographic evidence of malignancy. A 1 year screening mammogram is recommended. Based on the Tyrer Cuzick model (a risk assessment model) the patients lifetime risk is 5.9% and her 10 year risk is 0.8%. According to the ACR, ACS, and NCCN guidelines, an annual breast MRI exam elizabeth g with mammogram is recommended if the patients lifetime risk is 20% or greater. This exam was interpreted at Station ID: [id number]. NOTE: For mammograms, a report in lay terms will be sent to the patient. Approximately 15% of breast malignancies will not be visualized mammographically. In the management of a palpable breast mass, a negative mammogram must not discourage biopsy of a clinically suspicious lesion. Electronically Signed By: Arlene sloan/autumn:10/14/2021 15:48:15 ACR BI-RADS Category 1: Negative 3341F PARENCHYMAL PATTERN: (A) - The breast(s) demonstrate(s) scattered fibroglandular densities. BI-RADS CATEGORY: (1) - 1 RECOMMENDATION: (ANNUAL) - Recommend routine annual screening mammography. [id number] 1 year screening LATERALITY: (B)
== END 2021-10-14 09:04 | disposition home or self-care (01) ==
LOC: DI 09:03
PROVIDERS: ATTEND Obstetrics & Gynecology
DX: Z12.31 Encounter for screening mammogram for malignant neoplasm of breast (principal)

== ENCOUNTER 2022-10-26 08:00 | Outpatient (CLI) | payer MEDICAID ==
[2022-10-26 18:07] LABS: FECAL OCCULT BLOOD (FIT) NEGATIVE (NEGATIVE)
== END 2022-10-26 23:59 | disposition home or self-care (01) ==
LOC: LAB.N 08:00
PROVIDERS: ATTEND Nurse Practitioner Family
DX: K92.1 Melena (principal); K57.90 Diverticulosis of intestine, part unspecified, without perforation or abscess without bleeding; R10.30 Lower abdominal pain, unspecified; K64.9 Unspecified hemorrhoids
CPT/HCPCS: 82274

== ENCOUNTER 2023-06-07 11:52 | Outpatient (CLI) | payer MEDICAID ==
[2023-06-07 18:14] LABS: BUN - BLOOD UREA NITROGEN 18 mg/dL (6-20); CALCIUM 10.5 mg/dL (8.5-10.3); CARBON DIOXIDE - CO2 26 mmol/L (21-32); CHLORIDE 100 mmol/L (101-111); CHOLESTEROL 180 mg/dL; CREATININE 0.7 mg/dL (0.6-1.3); GFR - MDRD 91 (>89); GLUCOSE 149 mg/dL (74-104); HDL CHOLESTEROL 61 mg/dL; LDL CHOLESTEROL,CALCULATED 90 mg/dL; LDL/HDL RATIO 1.5 (<4.4); POTASSIUM 3.7 mmol/L (3.5-4.5); SODIUM 135 mmol/L (135-145); TRIGLYCERIDES 144 mg/dL (48-352); VLDL CHOLESTEROL 29 mg/dL
[2023-06-07 18:25] LABS: THYROID STIMULATING HORMONE 1.47 uIU/mL (0.34-5.60)
[2023-06-07 18:45] LABS: CREATININE,URINE 149.5 mg/dL; MICROALBUM/CREATININE RATIO,UR 154.5 ug/mg (<30.0); MICROALBUMIN,URINE 23.1 mg/dL
[2023-06-07 20:55] LABS: ESTIMATED AVERAGE GLUCOSE 148 mg/dL (70-100); HEMOGLOBIN A1c% 6.8 % (4.27-6.07)
== END 2023-06-07 11:53 | disposition home or self-care (01) ==
LOC: LAB.N 11:52
PROVIDERS: ATTEND Nurse Practitioner Family
DX: I10 Essential (primary) hypertension (principal); E78.5 Hyperlipidemia, unspecified; E11.9 Type 2 diabetes mellitus without complications; E66.9 Obesity, unspecified
CPT/HCPCS: 36415; 80048; 80061; 82043; 82570; 83036; 83721; 84443